=== PATIENT | male | born 2000 | race Caucasian/White ===

== ENCOUNTER 2019-01-31 09:47 | Emergency (ER) | payer OTHER, SELFPAY ==
[2019-01-31 09:49] VITALS: BP 133/75; PULSE 105; RESP 18; TEMP 36.9; O2SAT 97; BMI 30.7
--- NOTE | 2019-01-31 10:00 | ED.VISSUMM ---
- ER Visit Summary Date of Service: 01/31/19 Chief Complaint: Laceration History of Present Illness: The patient is a 19 M who works at [employer]. He reports that just prior to coming emergency department he slipped while washing his hands and hit his right elbow on the sink. He suffered a laceration. He is right-hand dominant. He reports that the sharp pain that is 1 out of 10 in severity. Is worsened by movement and relieved by rest. He denies any paresthesias distally. No other injuries. His tetanus is up-to-date. Physical Examination: Vitals: Stable. Afebrile. General: Well-nourished and well-developed. Head: Normocephalic atraumatic. Neck: Supple, no lymphadenopathy. No JVD. Nontender. Cardiovascular: Regular rate and rhythm. No murmurs. Respiratory: No respiratory distress. Clear to auscultation bilaterally. Abdominal: Soft, nontender, nondistended, normal bowel sounds. No guarding, rebound, or peritoneal signs. Back: Nontender. Extremities: Nontender, no edema. 1 cm laceration just distal to the olecranon process on the right. He is neurovascular intact distal to this. Skin: Normal color, no rash. Neurologic: Alert and oriented ?3. Cranial nerves II through XII are intact. Normal strength and sensation. Psych: Normal affect. Test Results: X-ray shows no foreign body or fracture. Emergency Department Course and Treatment: Patient had his wound anesthetized and repaired. He tolerated this well. Treatment Plan: Patient will be discharged instructions to follow-up with corporate care in 10 to 14 days for suture removal. He is instructed to keep this area clean and covered at work. Return to the emergency department for any worsening symptoms. Disposition: To home in improved and stable condition. Impression: 1. Laceration right elbow, 1 cm, repaired. Procedure note: Wound was cleansed with chlorhexidine soap. Anesthetized with 1% lidocaine without epinephrine. Copiously irrigated with normal saline. Wound was explored there is no foreign material present. It was closed with 2 simple interrupted 4-0 ethilon sutures. The patient tolerated it well. This note was generated with miDriveation software. It may contain incorrect words, spelling, and punctuation that were not noted in review of the chart prior to signing ED Disposition - Plan for ED Patient: Instructions: LACERATION, Extrem (Suture, Staple or Tape) Referrals: [facility] [GROUP OF PHYSICIANS] - 10-14 Days suture removal
--- NOTE | 2019-01-31 10:03 | RAD_ITS ---
STUDY: X-RAY - RIGHT ELBOW REASON FOR EXAM: Male, 19 years old. PT WAS AT WORK AT [employer] AND CUT HIS RT ELBOW ON METAL, BLEEDING CONTROLLED PRIOR TO ARRIVAL TECHNIQUE: 3 view(s) of the elbow. COMPARISON: None. FINDINGS: Normal visualized humerus, radius and ulna. Normal radiocapitellar and ulnotrochlear articulations. The soft tissue structures are unremarkable. No radiopaque foreign body. RAD/Elbow min 3 Views IMPRESSION: Normal x-ray examination of the elbow. Electronically Signed: Ruddy Villar MD at 10:21 EDT , Service support ,
== END 2019-01-31 11:09 | disposition home or self-care (01) ==
LOC: ED 10:33
PROVIDERS: Emergency Provider Emergency Medicine
DX: S51.011A Laceration without foreign body of right elbow, initial encounter (principal); W22.09XA Striking against other stationary object, initial encounter; Y93.E8 Activity, other personal hygiene; Y92.89 Other specified places as the place of occurrence of the external cause; Y99.0 Civilian activity done for income or pay; Z72.0 Tobacco use
CPT/HCPCS: 12001; 73080; 99283

== ENCOUNTER 2020-12-02 12:03 | Emergency (ER) | payer OTHER, BC, SELFPAY ==
[2019-02-11 10:34] VITALS: BMI 30.7
[2020-12-02 12:04] VITALS: BP 146/84; PULSE 78; RESP 16; TEMP 36.3; O2SAT 97; BMI 33.4
--- NOTE | 2020-12-02 12:09 | ED.RN ---
[facility] [employer] COUNTERPERSON NOTIFIED OF DRUG SCREEN.
--- NOTE | 2020-12-02 12:33 | EDS_ITS ---
HPI History of Present Illness Chief Complaint: Eye Problem Detail of Chief Complaint: Concern for foreign body to right eye Informant: patient Associated Symptoms Associated Symptoms - Eyes: Foreign body sensation and Photophobia History of injury: Uncertain Narrative Narrative: Patient presents to the emergency department with discomfort of the right eye that started around 7 AM this morning. Patient states that he was at work looking up some airlines when he started having discomfort. He does not recall a time where anything may have flown into his eye. He does wear eyeglasses. Patient not sure if maybe he rubbed his eye and something got put into the eye. Patient is up-to-date on tetanus. He describes some mild photophobia. He states the discomfort is intermittent. Prior similar symptoms: No PFSH PFSH Home Medications NK 01/31/19 [History Last Taken Unknown] Allergy/AdvReac Type Severity Reaction Status Date / Time No Known Allergies Allergy Verified 12/02/20 12:03 Family History (Updated 02/11/19 @ 09:59 by Brenna Rai) Other CVA (cerebral vascular accident) Myocardial infarction Social History (Updated 02/11/19 @ 10:34 by Yobani DEVLIN, PA) Smoking Status: Never smoker alcohol intake: current ROS ROS ED Constitutional Constitutional ED: Reports systems reviewed and no addt'l complaints, except as documented; Denies body ache(s), change in weight or chills Eyes Eyes: Reports other Details: Foreign body sensation to right eye ; Denies acute decrease in peripheral vision, change in vision, double vision or loss of vision ENT ENT ED: Reports none; Denies ear pain, lip swelling, loss taste/smell, neck pain, otalgia or sore throat Cardiovascular Cardiovascular: Reports none; Denies abdominal pain, chest pain with activity, leg edema, lightheadedness, palpitations, rapid heart rate or syncope Respiratory/Chest Respiratory/Chest: Reports none; Denies change in mental status, dry cough, dyspnea, hemoptysis, shortness of breath at rest or shortness of breath with exertion Gastrointestinal Gastrointestinal: Reports none; Denies abdominal pain, change in stool character, diarrhea, hematemesis, hematochezia, melena, rectal bleeding or vomi ting Genitourinary Genitourinary ED: Reports none; Denies abdominal discomfort, anuria, dysuria, genital pain or polyuria Musculoskeletal Musculoskeletal: Reports none; Denies arthralgias, back pain, difficulty walking, extremity pain, muscle weakness or myalgias Integumentary Reports none; Denies abscess or rash Neurologic Neurologic: Reports none; Denies abnormal gait, confusion, focal weakness, frequent falls, headache(s), loss of vision, numbness, paresthesias, radicular pain, vertigo or weakness Psychiatric Psychiatric: Reports systems reviewed and no addt'l complaints, except as documented and none; Denies behavioral changes, confusion, difficulty concentrating, hallucinations, suicidal ideation, tactile hallucinations or v isual hallucinations Endocrine Endocrinology: Denies none, cold intolerance, excessive sweating, fatigue or heat intolerance Hematologic/Lymphatic Hematologic/Lymphatic: Reports none; Denies anemia, easy bleeding or easy bruising Allergic/Immunologic Allergic/Immunologic ED: Denies as per HPI, none, lip swelling, mouth swelling, throat swelling, tongue swelling or hives EXAM Physical Exam Const Vital Signs: 12/02/20 12:04 Temperature 97.3 F L Temperature Source Temporal Pulse Rate 78 Respiratory Rate 16 Blood Pressure 146/84 H Blood Pressure Mean 104 Pulse Ox 97 Oxygen Delivery Method Room Air Positive well nourished and well developed General Appearance ED: well developed and NAD HEENT Reports TM's clear and moist mucous membranes normocephalic and atraumatic; Negative for trauma or tenderness Tympanic Membrane ED: Yes TM's clear Eyes PERRL and EOMs intact bilaterally Eyes Narrative: Eyelids were both everted and there were no foreign bodies noted underneath the eyelids. Patient had fluorescein dye placed to the right eye and again no uptake was noted. There is no evidence of foreign body or corneal abrasion. Patient has some minimal conjunctival erythema noted. General Eye ED: Negative for pale conjunctiva or scleral icterus Neck no lymphadenopathy, supple and no JVD General: Negative for tenderness Chest Wall inspection of chest normal and palpation of chest normal Chest: Negative for tenderness Resp normal respiratory effort and clear to auscultation bilaterally Effort and Inspection: Negative for respiratory distress or pain with movement Auscultation: Negative for rhonchi, wheezes or diminished lung sounds Cardio regular rate, regular rhythm, S1 normal heart sound, S2 normal heart sound and no murmurs Peripheral Pulses: pulses 2+ throughout GI normal to inspection, nondistended, normoactive bowel sounds, soft to palpation, non-tender, non-distended and no masses Back/Spine no CVA tenderness and no thoracic nor lumbar tenderness Extremity normal to inspection General Extremety ED: Negative for edema General Extremity: Negative for edema Neuro oriented x3, CN's II-XII intact bilaterally, no sensory deficits noted and gait normal Sensorium / Orientation: awake, alert, oriented to person, oriented to place and oriented to time Motor Exam: strength 5/5 throughout and strength abnormal Psych mental status grossly normal Skin no rashes or lesions noted and no wounds MDM MDM MDM Narrative Medical decision making narrative: At this point etiology of his discomfort is unclear. I did discuss case with ophthalmology Dr. Rodriguez who will see patient in the office at 2 PM. I did start patient on gentamicin ophthalmic drops. Discharge Plan Triage Chief Complaint: Eye Problem ED Provider: Hansa Grant Dx/Rx/DC Orders Clinical Impression: Acute pain in right eye Instructions: ED Pain, Acute, Uncertain Cause Prescriptions: No Action NK RF: 0 Primary Care Provider: Care Physician,No Primary Referrals: Carl Rodriguez MD [STAFF PHYSICIAN] - 12/02/20 2:00 pm Care Physician,No Primary [Primary Care Provider] - Disposition Disposition: Home, self care
[2020-12-02] MEDS: Tetracaine 0.5% Ophthalmic Bottle 1 DRP LEFT EYE (12:58)
[2020-12-02] MEDS: Gentamicin Sulfate 1 OPTH.BTL 2 DRP RIGHT EYE (13:03)
[2020-12-02 13:04] VITALS: BP 135/87; PULSE 74; RESP 15; O2SAT 98
== END 2020-12-02 13:10 | disposition home or self-care (01) ==
LOC: ED 13:10
PROVIDERS: Emergency Provider Emergency Medicine
DX: H57.11 Ocular pain, right eye (principal); H53.149 Visual discomfort, unspecified
CPT/HCPCS: 99283

== ENCOUNTER 2022-02-25 22:44 | Emergency (ER) | payer BC, SELFPAY ==
[2022-02-25 22:44] VITALS: BP 146/88; PULSE 112; RESP 18; TEMP 36.4; O2SAT 99; BMI 28.8
--- NOTE | 2022-02-25 22:55 | EX.ED.UPPERE ---
HPI History of Present Illness Chief Complaint: Upper Extremity Injury Informant: patient Occured/Mechanism Mechanism/Context: Yes crush Onset/Context/Timing Onset: Today Current Severity: Mild Maximum Severity: Mild Narrative Narrative: Patient presents with injury to his left index finger. He was trying to remove apart from a car and was hitting with a hammer. The hammer hit his left index finger. He has a superficial laceration over the DIP area of the extensor surface. Tetanus is up-to-date. PFSH PFSH Medical History no medical history no medical history Home Medications cephalexin 500 mg capsule 500 mg PO Q12 #14 caps 02/25/22 [Rx Last Taken Unknown] Allergy/AdvReac Type Severity Reaction Status Date / Time No Known Allergies Allergy Verified 02/25/22 22:47 Family History Other CVA (cerebral vascular accident) Myocardial infarction Social History Smoking Status: Never smoker alcohol intake: current ROS ROS ED Constitutional Constitutional ED: Denies chills or fever(s) Eyes Eyes: Denies change in vision ENT ENT ED: Denies sore throat Cardiovascular Cardiovascular: Denies chest pain Respiratory/Chest Respiratory/Chest: Denies cough or dyspnea Gastrointestinal Gastrointestinal: Denies abdominal pain, nausea or vomiting Genitourinary Genitourinary ED: Denies dysuria Musculoskeletal Musculoskeletal: Reports extremity pain; Denies back pain Integumentary Reports Abrasions; Denies rash Neurologic Neurologic: Denies headache(s) or weakness Allergic/Immunologic Allergic/Immunologic ED: Denies lip swelling or urticaria EXAM Physical Exam Const Vital Signs: 02/25/22 22:44 Temperature 97.6 F L Temperature Source Temporal Pulse Rate 112 H Respiratory Rate 18 Blood Pressure 146/88 H Blood Pressure Mean 107 Pulse Ox 99 Oxygen Delivery Method Room Air Positive well nourished and well developed General Appearance ED: well developed HEENT Reports normocephalic and head/scalp atraumatic Eyes PERRL and EOMs intact bilaterally Neck supple Chest Wall inspection of chest normal and palpation of chest normal Resp normal respiratory effort and clear to auscultation bilaterally Cardio regular rate and regular rhythm GI normal to inspection, nondistended, normoactive bowel sounds Palpation: soft Extremity Extremity Narrative: 1 cm zigzag shaped superficial laceration over the DIP joint of the left index finger on the extensor surface. Minimal bony tenderness to palpation. Good range of motion. Good cap refill and sensation distally. Neuro oriented x3 and no sensory deficits noted Sensorium / Orientation: alert Motor Exam: strength 5/5 throughout Psych mental status grossly normal MDM MDM MDM Narrative Medical decision making narrative: Patient reports his tetanus is up-to-date. Left index finger x-rays obtained. Radiography Diagnostic Testing: Radiology Impression Finger X-Ray 02/25/22 22:57 IMPRESSION: Middle phalangeal head fracture with dorsal subluxation of the distal fragment. Electronically Signed: David Mota MD at 23:20 EDT , Treatment and Re-Evaluation Narrative: Left finger x-rays reviewed by myself. He has evidence of a small fracture of the very distal aspect of the middle phalanx. There is dorsal displacement of the distal fragment. X-rays are reviewed with the patient. Digital block is performed using 4 cc of 1% lidocaine. Laceration is cleansed. 2 simple interrupted sutures of 5-0 nylon are placed. Dressing is applied. I did attempt gentle traction and manipulation of the DIP joint. He is placed in AlumaFoam splint. I spoke with Dr. Danielson, on-call for orthopedics. He reviewed the x-rays. He will follow-up with the patient in the office this week. Discharge Plan Triage Chief Complaint: Upper Extremity Injury ED Provider: Deena Dow Dx/Rx/DC Orders Clinical Impression: Laceration of left index finger, Finger fracture Instructions: ED Fracture, Finger, Open Prescriptions: New cephalexin 500 mg capsule 500 mg PO Q12 Qty: 14 0RF Primary Care Provider: Care Physician,No Primary Referrals: Zander Danielson DO [Med Staff - Active Staff] - 3-5 Days Care Physician,No Primary [Primary Care Provider] - Disposition Disposition: Home, Self Care
--- NOTE | 2022-02-25 22:57 | RAD_ITS ---
STUDY: X-RAY - LEFT HAND, ATTENTION SECOND FINGER REASON FOR EXAM: Male, 22 years old. Injury -- index finger TECHNIQUE: 3 view(s) of the finger were obtained. COMPARISON: None. FINDINGS: Normal metacarpal head. Normal metacarpophalangeal joint. Normal proximal phalanx. Middle phalangeal head transverse fracture with dorsal subluxation of the distal fragment. No articular involvement. Normal distal phalanx. Normal proximal interphalangeal joint. Normal distal interphalangeal joint. RAD/Finger(s) Min 2 Views IMPRESSION: Middle phalangeal head fracture with dorsal subluxation of the distal fragment. Electronically Signed: David Mota MD at 23:20 EDT ,
[2022-02-25] MEDS: Lidocaine 1% (20 ml mdv) 20 ML Vial INFILT (23:40)
[2022-02-25] MEDS: Cephalexin 250 MG Capsule 500 MG PO (23:55)
== END 2022-02-25 23:57 | disposition home or self-care (01) ==
PROVIDERS: Emergency Provider Emergency Medicine; Visit Provider Emergency Medicine
DX: S62.621B Displaced fracture of middle phalanx of left index finger, initial encounter for open fracture (principal); W22.8XXA Striking against or struck by other objects, initial encounter
CPT/HCPCS: 12001; 73140; 99283

== ENCOUNTER 2024-02-25 19:46 | Emergency (ER) | payer OTHER, SELFPAY ==
[2024-02-25 19:47] VITALS: BP 160/72; PULSE 111; RESP 96; TEMP 38.7; O2SAT 98; BMI 32.6
[2024-02-25 19:51] VITALS: BP 144/71; PULSE 75; RESP 18; TEMP 37.9; O2SAT 98
--- NOTE | 2024-02-25 20:16 | EX.ED.DYSGE1 ---
HPI History of Present Illness Chief Complaint: General Illness Informant: patient Onset/Context/Timing Onset: Today Context: Sudden Onset Timing: Continuous Quality: Sharp Location: Substernal area Worsened by: Movement Relieved by: Rest Narrative Narrative: Patient presents with chest pain and dizziness that began today. Patient states he woke up and noted some chest pain. Patient states it is over the substernal area. Patient states it has gradually gotten worse. Patient states he has had some dizziness today as well. Patient also admits to some pressure in both ears. Patient states that his dizziness feels like he is walking in water. Patient states that it is worse with movement. Patient states it is better with rest. Patient denies any shortness of breath. Patient denies any nausea or vomiting. Patient admits to a fever of 100.3. Patient also admits to some chills. PFSH PFSH Medical History no medical history no medical history Home Medications ?Medication ?Instructions ?Recorded ?Last Taken ?Type cephalexin 500 mg capsule 500 mg PO Q12 #14 caps 02/25/22 Unknown Rx Allergy/AdvReac Type Severity Reaction Status Date / Time No Known Allergies Allergy Verified 02/25/24 19:51 Family History Other CVA (cerebral vascular accident) Myocardial infarction Family History no significant family his Surgical History no surgical history no surgical history Social History (Updated 02/25/24 @ 21:[address] Chong Barroso, DO) Smoking Status: Never smoker Electronic Cigarette Use: with nicotine alcohol intake: current ROS ROS ED Constitutional Constitutional ED: Reports chills and fever(s) Eyes Eyes: Denies blurry vision or change in vision ENT ENT ED: Reports ear pain bilateral (Pressure) and sore throat; Denies rhinorrhea Cardiovascular Cardiovascular: Reports chest pain; Denies palpitations Respiratory/Chest Respiratory/Chest: Denies cough or dyspnea Gastrointestinal Gastrointestinal: Denies nausea or vomiting Genitourinary Genitourinary ED: Denies dysuria or hematuria Musculoskeletal Musculoskeletal: Reports back pain and neck pain Integumentary Denies abscess or rash Neurologic Neurologic: Reports headache(s); Denies weakness Allergic/Immunologic Allergic/Immunologic ED: Denies mouth swelling or urticaria EXAM Physical Exam Const Vital Signs: 02/25/24 19:47 02/25/24 19:51 02/25/24 20:04 Temperature 101.6 F H 100.3 F H Temperature Source Oral Oral Pulse Rate 111 H 75 Respiratory Rate 96 H 18 Respiratory Effort Normal Non-Labored Respiratory Pattern Normal Blood Pressure 160/72 H 144/71 H Blood Pressure Mean 101 95 Pulse Ox 98 98 Oxygen Delivery Method Room Air Room Air 02/25/24 20:51 02/25/24 21:46 02/25/24 22:00 Temperature 99.7 F H 99.6 F H Temperature Source Oral Oral Pulse Rate 74 97 95 Respiratory Rate 18 25 H 20 H Respiratory Effort Respiratory Pattern Blood Pressure 129/70 H 142/76 H 127/82 H Blood Pressure Mean 89 98 97 Pulse Ox 99 97 98 Oxygen Delivery Method Room Air Room Air Positive well nourished and well developed General Appearance ED: well developed and NAD HEENT Reports moist mucous membranes Neck supple and no JVD Chest Wall palpation of chest normal Resp normal respiratory effort and clear to auscultation bilaterally Cardio regular rate and regular rhythm GI non-tender and non-distended Palpation: soft Extremity normal to inspection General Extremety ED: Negative for edema or tenderness General Extremity: Negative for edema Neuro oriented x3, CN's II-XII intact bilaterally and no sensory deficits noted Sensorium / Orientation: alert Motor Exam: strength 5/5 throughout Psych mental status grossly normal MDM MDM MDM Narrative Medical decision making narrative: Differential diagnosis includes viral illness, pneumonia, dehydration, electrolyte abnormality, vertigo, labyrinthitis, cardiac dysrhythmia, cardiac ischemia, and migraine headache. EKG will be obtained to assess for cardiac dysrhythmia and cardiac ischemia. Chest x-ray will be obtained to assess for pneumonia and pneumothorax. CBC will be obtained to assess for leukocytosis and anemia. Basic metabolic profile will be obtained to assess for electrolyte abnormality and renal function. High-sensitivity troponin will be obtained to assess for cardiac ischemia. COVID-19, influenza, and RSV PCR will be obtained to assess for viral illness. Lab Data Attestation: I reviewed the patient's lab results. Lab results narrative: CBC was reviewed and was within normal limits. Basic metabolic profile was reviewed and was within normal limits. High-sensitivity troponin was reviewed and was normal at 3. COVID-19 PCR was reviewed and was negative. Influenza PCR was reviewed and was negative for influenza A and influenza B. RSV PCR was reviewed and was negative. Labs: Laboratory Results - last 24 hr 02/25/24 21:25 WBC 6.2 RBC 5.10 Hgb 15.3 Hct 44.7 MCV 87.6 MCH 30.0 MCHC 34.2 RDW Std Deviation 39.1 RDW Coeff of Elie 12.1 Plt Count 235 MPV 9.8 Immature Gran % (Auto) 0.200 Neut % (Auto) 62.7 Lymph % (Auto) 22.7 [place] % (Auto) 14.0 H Eos % (Auto) 0.2 Baso % (Auto) 0.2 Absolute Neuts (auto) 3.9 Absolute Lymphs (auto) 1.41 Nucleated RBC % 0 Sodium 137 Potassium 3.5 Chloride 104 Carbon Dioxide 26.0 Anion Gap 7 BUN 12 Creatinine 0.92 Estim Creat Clear Calc 137.77 Est GFR (MDRD) Af Amer 128 Est GFR (MDRD) Non-Af 106 BUN/Creatinine Ratio 13.0 Glucose 105 Calcium 8.8 Troponin I High Sens 3 Radiography Diagnostic Testing: Clinical Impression(s) from Imaging Studies Chest X-Ray 02/25/24 21:38 IMPRESSION: No radiographic evidence of acute cardiopulmonary disease. Electronically Signed: Edward Farr MD at 22:06 EDT , PA and lateral chest x-ray was obtained. There are 2 views. On my independent interpretation, lung nixon are clear. There is normal cardiac silhouette. Bony thorax is normal. There is no acute process noted. Radiologist also interpreted the x-ray and agrees. EKG Initial EKG: Attestation: I personally reviewed and interpreted this EKG as follows: Interpretation: Sinus Rhythm (97) and No Acute Injury Pattern Comments: EKG was obtained. On my independent interpretation, it showed a normal sinus rhythm with a rate of 97. [place] interval, QRS interval, and QTc intervals were all normal. [place] was normal. There are no acute ST or T wave changes. Prior EKG tracings: not available for review Prior: No Prior Treatment and Re-Evaluation :: Nicotine cessation was discussed. Patient was given IV fluids and Tylenol here. Patient was advised of his findings. Patient was instructed to drink plenty of fluids. Patient was instructed take Tylenol or ibuprofen as needed for any pain or fevers. Patient was instructed to follow-up with his primary care physician in 5 to 7 days for further evaluation. Patient understood and was agreeable with plan. All questions were answered. Discharge Plan Triage Chief Complaint: General Illness ED Provider: Chong Barroso Dx/Rx/DC Orders Clinical Impression: Viral illness, Nicotine vapor product user Prescriptions: No Action cephalexin 500 mg capsule 500 mg PO Q12 Qty: 14 0RF Stand Alone Forms: ED Work / School Excuse Primary Care Provider: Care Physician,No Primary Referrals: Chong Larsen MD [Med Staff - [facility]] - 5-7 Days Care Physician,No Primary [Primary Care Provider] - Print Language: Burmese Disposition Disposition: Home, Self Care
[2024-02-25 20:51] VITALS: BP 129/70; PULSE 74; RESP 18; TEMP 37.6; O2SAT 99
[2024-02-25] MEDS: Acetaminophen 500 MG Tablet 1000 MG PO (21:23)
[2024-02-25] MEDS: 0.9% Normal Saline (1000mL) 1,000 ML 1000 ML IV (21:23)
[2024-02-25 21:37] LABS: Absolute Lymphocyte Count 1.41 X10^3/uL (0.83-4.51); Absolute Neutrophil Count 3.9 X10^3/uL (2.0-7.7); Basophil# 0.01 X10^3/uL; Basophil% 0.2 % (0-1); Eosinophil# 0.01 X10^3/uL; Eosinophils% 0.2 % (0-5); Hematocrit 44.7 % (40-54); Hemoglobin 15.3 g/dL (13.0-16.5); Lymphocyte # 1.41 X10^3/ul (0.83-4.51); Lymphocyte % 22.7 % (19-41); Mean Corp Hgb Conc 34.2 g/dL (32-36); Mean Corpuscular Volume 87.6 fL (80-94); Mean Platelet Vol. 9.8 fl (6.2-12.0); Monocyte# 0.87 X10^3/uL; NRBC Flagged by Analyzer 0 % (0-5); Neutrophil # 3.91 X10^3/uL (2.7-7.7); Neutrophil % 62.7 % (47-70); Platelet Count 235 K/mm3 (150-450); RBC Distribution Width CV 12.1 % (11.6-14.6); RBC Distribution Width SD 39.1 fl (35.1-43.9); White Blood Count 6.2 K/mm3 (4.4-11.0)
--- NOTE | 2024-02-25 21:38 | RAD_ITS ---
EXAM: XR CHEST, 2 VIEWS CLINICAL INDICATION: Chest pain TECHNIQUE: Frontal and lateral views of the chest. COMPARISON: No relevant prior studies available. FINDINGS: LUNGS AND PLEURAL SPACES: Unremarkable. No consolidation or edema. No pneumothorax. No effusion. HEART: Unremarkable. Cardiac silhouette not enlarged. Normal pulmonary vasculature. MEDIASTINUM: Central airways and mediastinal contour are unremarkable. No mediastinal widening. Trachea is midline. BONES/JOINTS: Unremarkable. No acute fracture. SOFT TISSUES: Unremarkable. RAD/Chest PA and Lateral IMPRESSION: No radiographic evidence of acute cardiopulmonary disease. Electronically Signed: Edward Farr MD at 22:06 EDT ,
[2024-02-25 21:46] VITALS: BP 142/76; PULSE 97; RESP 25; O2SAT 97
[2024-02-25 21:56] LABS: Anion Gap 7 (5-15); BUN 12 mg/dL (7-18); Calcium,Total 8.8 mg/dL (8.5-10.1); Chloride 104 mmol/L (98-107); Creatinine, Serum 0.92 mg/dL (0.70-1.30); EST Glomerular Filtration Rate 106 mL/min (>60); Est Glom Filt Rate - Afr Amer 128 mL/min (>60); Estimated Creatinine Clearance 137.77 ml/min; Glucose 105 mg/dL (74-106); Potassium 3.5 mmol/L (3.5-5.1); Sodium Level 137 mmol/L (136-145); Troponin-I HS 3 pg/mL (3.0-78.0)
[2024-02-25 22:00] VITALS: BP 127/82; PULSE 95; RESP 20; TEMP 37.6; O2SAT 98
[2024-02-25 22:51] VITALS: BP 106/59; PULSE 95; RESP 22; TEMP 37.4; O2SAT 99
== END 2024-02-25 22:59 | disposition home or self-care (01) ==
PROVIDERS: Emergency Provider Emergency Medicine; Visit Provider Emergency Medicine
DX: B34.9 Viral infection, unspecified (principal); F17.290 Nicotine dependence, other tobacco product, uncomplicated
CPT/HCPCS: 71046; 80048; 84484; 85025; 87631; 93005; 96360; 99285; J7030; A4216

== ENCOUNTER 2025-06-04 11:23 | Emergency (ER) | payer OTHER, SELFPAY ==
[2025-06-04 11:23] VITALS: BP 146/87; PULSE 94; RESP 14; TEMP 36.8; O2SAT 98; BMI 37.8
--- NOTE | 2025-06-04 12:42 | EX.ED.UPPERE ---
HPI History of Present Illness Chief Complaint: Laceration Narrative Narrative: 25-year-old male who denies significant past medical history, [id number], presents with laceration to his left hand that he sustained approximately 3 hours ago. He was using a knife, making breakfast, when he accidentally stabbed his left hand. His wound is mainly at the base of his second digit and more towards the webspace in between the 1st and 2nd digit. He states his tetanus immunization is greater than 5 years but less than 10. He denies other injuries. PFSH PFS Medical History no medical history Home Medications ?Medication ?Instructions ?Recorded ?Last Taken ?Type NK 06/04/25 Unknown History Allergy/AdvReac Type Severity Reaction Status Date / Time No Known Allergies Allergy Verified 06/04/25 11:50 Family History Other CVA (cerebral vascular accident) Myocardial infarction Social History current occupational status: employed Smoking Status: Former smoker Electronic Cigarette Use: with nicotine alcohol intake: current ROS ROS ED ROS Narrative Review of systems positive for laceration/stab wound to the left hand. [id number]. Tetanus immunization current. Denies other injury. EXAM Physical Exam Narrative Exam Narrative: GCS 15. ABCs intact. Focused examination of the left hand does show a 1 cm laceration that is slightly irregular at the base of the second digit more towards the webspace of the hand between the 1st and 2nd digits. No active bleeding. Full range of motion of the left hand/fingers. No bony tenderness. Const Vital Signs: 06/04/25 11:23 Temperature 98.3 F Temperature Source Temporal Pulse Rate 94 Respiratory Rate 14 Blood Pressure 146/87 H Blood Pressure Mean 106 Pulse Ox 98 Oxygen Delivery Method Room Air MDM MDM MDM Narrative Medical decision making narrative: I do not feel that differential diagnosis is applicable. Additionally, I do not feel that he needs an x-ray of the left hand. There is no bony tenderness and I have low suspicion for foreign body or fracture. See procedure note for details. A total of 3 simple interrupted sutures using 5.0 nylon/Ethilon were inserted without difficulty. He is to have his sutures removed in 7 to 10 days by his primary care provider or urgent care. I feel he can take [id number] medications as needed for pain. Return instructions were reviewed. Disposition is discharged home in stable condition. History & Record Review Discussion w/independent historian: Patient Procedures Lacerations Left hand: Length: 0.39 in Shape: Linear Prep: Sterile Conditions Laceration repair: Lidocaine and Local Number of Sutures/[place]: 3 Suture Information: Ethilon and 5-0 Comment: Patient informed of risk of infection and scarring and acknowledged an understanding. Patient tolerated procedure well. Discharge Plan Triage Chief Complaint: Laceration ED Provider: Terry Mayo Dx/Rx/DC Orders Clinical Impression: Laceration of hand, left, Stab wound Instructions: ED Hand Laceration- All Closures Prescriptions: No Action NK Primary Care Provider: Care Physician,No Primary Referrals: Care Physician,No Primary [Primary Care Provider, Medical] Activity Restrictions/Additional Instructions: Tylenol or ibuprofen as needed for pain. Have sutures removed in 7 to 10 days by primary care provider. Return to the emergency department with increased redness of wound, drainage of pus, fever, red streak up your hand/arm, new or worsening symptoms. Print Language: Slovak Disposition Disposition: Home, Self Care
--- OUTSIDE RECORDS SUMMARY | 2025-06-04 13:09 | XMS RPT_ITS | CCD ---
Author Organization [facility] Inform ion Partnership [facility] Care Team Providers Care Agricultural [employer]rop [employer] Manager Name Role Phone NAOMI THAKUR Unavailable Unavailable PEBBLES LOPEZ Unavailable Unavailable Chong Barroso Attending Unavailable Care Physician, No Primary Primary Care Unava ilable Medications Current Medications Medication Drug Class(es) Dates Sig (Normalized) Sig (Original) cephalexin 500 mg oral capsule (1 source) Cephalosporin Antibacterial Start: 02-25-2022 take 500 mg by mouth every twelve hours Cephalexin Active 500 MG PO EVERY 12 HOURS February 25, 2022 12:00am Problems Problem Classification Problem Date Documented Da te Episodic/Chronic Fracture of upper limb (1 source) Fracture of phalanx of finger; Translations: [Fracture of unspecified phalanx of unspecified finger, initial encounter for closed fracture] Episodic Nonspecific chest pain (1 source) Chest pain, unspecified; Translations: [Chest pain, unspecified] Onset: 03-05-2024 Episodic Open wounds of extremities (1 source) Laceration of left index finger; Translations: [Laceration without foreign body of left index finger without damage to nail, initial encounter] Episodic Open wounds of extremities (1 source) Laceration of right elbow; Translations: [Laceration without foreign body of right elbow, initial encounter] Episodic Other eye disorders (1 source) Pain in eye; Translations: [Ocular pain, right eye] Episodic Results Test Name Value Interpretation Reference Range Facility Basic Metabolic Profile (BMP )on 02-25-2024 BUN/CRE 13.0 RATIO Normal 10- [facility] Comment on above: Order Comment: 'TROP ' Serial specimen #1, #2 or #3: 1 Performed By: #### L 501.4020, L500.2500, L100.0100 #### [facility] [address] [place], [address] CA,Total 8.8 mg/dL Normal 8.5-10.1 [facility] Comment on above: Order Comment: 'TROP ' Serial specimen #1, #2 or #3: 1 Performed By: #### L 501.4020, L500.2500, L100.0100 #### [facility] [address] [place], [address] Chloride [Moles/Vol] 104 mmol/L Normal 98-107 [facility] Comment on above: Order Comment: 'TROP ' Serial specimen #1, #2 or #3: 1 Performed By: #### L 501.4020, L500.2500, L100.0100 #### [facility] [address] [place], [address] CO2 [Moles/Vol] 26.0 mmol/L Normal 21.0-32.0 [facility] Comment on above: Order Comment: 'TROP ' Serial specimen #1, #2 or #3: 1 Performed By: #### L 501.4020, L500.2500, L100.0100 #### [facility] [address] [place], [address] Creatinine [Mass/Vol] 0.92 mg/dL Normal 0.70-1.30 [facility] Comment on above: Order Comment: 'TROP ' Serial specimen #1, #2 or #3: 1 Result Comment: The validity of the calculated GFR GFRAA in patients over 70 years has not been determined. Clinical correlation is essential. Performed By: #### L 501.4020, L500.2500, L100.0100 #### [facility] [address] [place], [address] ECRCL 137.77 ml/min Normal [facility] Comment on above: Order Comment: 'TROP ' Serial specimen #1, #2 or #3: 1 Performed By: #### L 501.4020, L500.2500, L100.0100 #### [facility] [address] [place], [address] EST GFR - AA 128 mL/min Normal >60 [facility] Comment on above: Order Comment: 'TROP ' Serial specimen #1, #2 or #3: 1 Result Comment: Afri can Samoan GFR Calc Performed By: #### L 501.4020, L500.2500, L100.0100 #### [facility] [address] [place], [address] GAP 7 Normal 5-15 [facility] Comment on above: Order Comment: 'TROP ' Serial specimen #1, #2 or #3: 1 Performed By: #### L 501.4020, L500.2500, L100.0100 #### [facility] [address] [place], [address] GFR/1.73 sq M.predicted among non-blacks MDRD (S/P/Bld) [Vol rate/Area] 106 mL/min/{1.73_m2} Normal >60 [facility] Comment on above: Order Comment: 'TROP ' Serial specimen #1, #2 or #3: 1 Result Comment: Non- GFR Calc Performed By: #### L 501.4020, L500.2500, L100.0100 #### [facility] [address] [place], [address] Glucose [Mass/Vol] 105 mg/dL Normal 74-106 [facility] Comment on above: Order Comment: 'TROP ' Serial specimen #1, #2 or #3: 1 Result Comment: Fast ing Glucose result from 100 to 125 mg/dL suggests IMPAIRED HOMEOSTASIS per A.D.A. criteria. Performed By: #### L 501.4020, L500.2500, L100.0100 #### [facility] [address] [place], [address] Potassium [Moles/Vol] 3.5 mmol/L Normal 3.5-5.1 [facility] Comment on above: Order Comment: 'TROP ' Serial specimen #1, #2 or #3: 1 Performed By: #### L 501.4020, L500.2500, L100.0100 #### [facility] [address] [place], [address] Sodium [Moles/Vol] 137 mmol/L Normal 136-145 [facility] Comment on above: Order Comment: 'TROP ' Serial specimen #1, #2 or #3: 1 Performed By: #### L 501.4020, L500.2500, L100.0100 #### [facility] [address] [place], [address] Urea nitrogen [Mass/Vol] 12 mg/dL Normal 7-18 [facility] Comment on above: Order Comment: 'TROP ' Serial specimen #1, #2 or #3: 1 Performed By: #### L 501.4020, L500.2500, L100.0100 #### [facility] [address] [place], [address] CBC W/Diff, Automatedon 02-11 Absolute Lymph 1.41 X10 3/uL Normal 0.83-4.51 [facility] Comment on above: Performed By: #### L 501.4020, L500.2500, L100.0100 #### [facility] [address] [place], [address] Absolute Neut 3.9 X10 3/uL Normal 2.0-7.7 [facility] Comment on above: Performed By: #### L 501.4020, L500.2500, L100.0100 #### [facility] [address] [place], [address] Basophils/100 WBC (Bld) 0.2 % Normal 0-1 [facility] Comment on above: Performed By: #### L 501.4020, L500.2500, L100.0100 #### [facility] [address] [place], [address] Eosinophils/100 WBC (Bld) 0.2 % Normal 0-5 [facility] Comment on above: Performed By: #### L 501.4020, L500.2500, L100.0100 #### [facility] [address] [place], [address] Erythrocyte distribution width (RBC) [Ratio] 12.1 % Normal 11.6-14.6 [facility] Comment on above: Performed By: #### L 501.4020, L500.2500, L100.0100 #### [facility] [address] [place], [address] Hematocrit (Bld) [Volume fraction] 44.7 % Normal 40-54 [facility] Comment on above: Performed By: #### L 501.4020, L500.2500, L100.0100 #### [facility] [address] [place], [address] Hemoglobin (Bld) [Mass/Vol] 15.3 g/dL Normal 13.0-16.5 [facility] Comment on above: Performed By: #### L 501.4020, L500.2500, L100.0100 #### [facility] [address] [place], [address] IG% 0.200 Normal 0.0-0.9 [facility] Comment on above: Result Comment: IG% - Immature Granulocytes (promyelocytes, myelocytes and metamyelocytes) > 1% indicates that a LEFT SHIFT is Present. Performed By: #### L 501.4020, L500.2500, L100.0100 #### [facility] [address] [place], [address] Lymphocytes/100 WBC (Bld) 22.7 % Normal 19-41 [facility] Comment on above: Performed By: #### L 501.4020, L500.2500, L100.0100 #### [facility] [address] [place], [address] MCH (RBC) [Entitic mass] 30.0 pg Normal 27.0-32.0 [facility] Comment on above: Performed By: #### L 501.4020, L500.2500, L100.0100 #### [facility] [address] [place], [address] MCHC (RBC) [Mass/Vol] 34.2 g/dL Normal 32-36 [facility] Comment on above: Performed By: #### L 501.4020, L500.2500, L100.0100 #### [facility] [address] [place], [address] MCV (RBC) [Entitic vol] 87.6 fL Normal 80-94 [facility] Comment on above: Performed By: #### L 501.4020, L500.2500, L100.0100 #### [facility] [address] [place], [address] Monocytes/100 WBC (Bld) 14.0 % High 0-10 [facility] Comment on above: Performed By: #### L 501.4020, L500.2500, L100.0100 #### [facility] [address] [place], [address] Neutrophils/100 WBC (Bld) 62.7 % Normal 47-70 [facility] Comment on above: Performed By: #### L 501.4020, L500.2500, L100.0100 #### [facility] [address] [place], [address] Nucleated RBC (Bld) [#/Vol] 0 10*3/uL Normal 0-5 [facility] Comment on above: Performed By: #### L 501.4020, L500.2500, L100.0100 #### [facility] [address] [place], [address] Platelet mean volume (Bld) [Entitic vol] 9.8 fL Normal 6.2-12.0 [facility] Comment on above: Performed By: #### L 501.4020, L500.2500, L100.0100 #### [facility] [address] [place], [address] Platelets (Bld) [#/Vol] 235 10*3/uL Normal 150-450 [facility] Comment on above: Performed By: #### L 501.4020, L500.2500, L100.0100 #### [facility] [address] [place], [address] RBC (Bld) [#/Vol] 5.10 10*6/uL Normal 4.6-6.2 [facility] Comment on above: Performed By: #### L 501.4020, L500.2500, L100.0100 #### [facility] [address] [place], [address] RDW SD 39.1 fl Normal 35.1-43.9 [facility] Comment on above: Performed By: #### L 501.4020, L500.2500, L100.0100 #### [facility] [address] [place], [address] WBC (Bld) [#/Vol] 6.2 10*3/uL Normal 4.4-11.0 [facility] Comment on above: Performed By: #### L 501.4020, L500.2500, L100.0100 #### [facility] [address] [place], [address] Chest PA and Lateralon 02-24 Chest PA and Lateral [facility] Imaging Services [address] [place] [address] Chest PA and Lateral MR#: [id number] Acct: [id number] Name: SANDI CARRANZA Rep #: [id number] : 2000 M 24 From: Edward linder MD PCP: Care Physician,No Primary Status: REG ER Study: Chest PA and Lateral Date of Exam: 02/25/24 Exam# [id number] Ordering Dr: Chong Barroso DO [id number] EXAM: XR CHEST, 2 VIEWS CLINICAL INDICATION: Chest pain TECHNIQUE: Frontal and lateral views of the chest. COMPARISON: No relevant prior studies available. FINDINGS: LUNGS AND PLEURAL SPACES: Unremarkable. No consolidation or edema. No pneumothorax. No effusion. HEART: Unremarkable. Cardiac silhouette not enlarged. Normal pulmonary vasculature. MEDIASTINUM: Central airways and mediastinal contour are unremarkable. No mediastinal widening. Trachea is midline. BONES/JOINTS: Unremarkable. No acute fracture. SOFT TISSUES: Unremarkable. RAD/Chest PA and Lateral IMPRESSION: No radiographic evidence of acute cardiopulmonary disease. Electronically Signed: Edward Farr MD at 22:06 EDT , CC: Dr. Chong Barroso DO; No Primary Care Physician Rail Bender: Signed Normal [facility] Emergency Department Summary on 02-25-2024 Emergency Department Summary [facility] Medical Records Department [address] [place] [address] Emergency Department Summary 02/25/24 MR#: [id number] Acct: [id number] Name: SANDI CARRANZA Rep #: [id number] : 2000 24 From: Chong Barroso DO PCP: Care Physician,No Primary Status:[facility] ER Location: ED HPI History of Present Illness Chief Complaint: General Illness Informant: patient Onset/Context/Timing Onset: Today Context: Sudden Onset Timing: Continuous Quality: Sharp Location: Substernal area Worsened by: Movement Relieved by: Rest Narrative Narrative: Patient presents with chest pain and dizziness that began today. Patient states he woke up and noted some chest pain. Patient states it is over the substernal area. Patient states it has gradually gotten worse. Patient states he has had some dizziness today as well. Patient also admits to some pressure in both ears. Patient states that his dizziness feels like he is walking in water. Patient states that it is worse with movement. Patient states it is better with rest. Patient denies any shortness of breath. Patient denies any nausea or vomiting. Patient admits to a fever of 100.3. Patient also admits to some chills. PFSH PFSH Medical History no medical history no medical history Home Medications ???Medication ???Instructions ???Recorded ???Last Taken ???Type cephalexin 500 mg capsule 500 mg PO Q12 #14 caps 02/25/22 Unknown Rx Allergy/AdvReac Type Severity Reaction Status Date / Time No Known Allergies Allergy Verified 02/25/24 19:51 Family History Other CVA (cerebral vascular accident) Myocardial infarction Family History no significant family his Surgical History no surgical history no surgical history Social History (Updated 02/25/24 @ 21:[address] Chong Barroso, DO) Smoking Status: Never smoker Electronic Cigarette Use: with nicotine alcohol intake: current ROS ROS ED Constitutional Constitutional ED: Reports chills and fever(s) Eyes Eyes: Denies blurry vision or change in vision ENT ENT ED: Reports ear pain bilateral (Pressure) and sore throat; Denies rhinorrhea Cardiovascular Cardiovascular: Reports chest pain; Denies palpitations Respiratory/Chest Respiratory/Chest: Denies cough or dyspnea Gastrointestinal Gastrointestinal: Denies nausea or vomiting Genitourinary Genitourinary ED: Denies dysuria or hematuria Musculoskeletal Musculoskeletal: Reports back pain and neck pain Integumentary Denies abscess or rash Neurologic Neurologic: Reports headache(s); Denies weakness Allergic/Immunologic Allergic/Immunologic ED: Denies mouth swelling or urticaria EXAM Physical Exam Const Vital Signs: 02/25/24 19:47 02/25/24 19:51 02/25/24 20:04 Temperature 101.6 F H 100.3 F H Temperature Source Oral Oral Pulse Rate 111 H 75 Respiratory Rate 96 H 18 Respiratory Effort Normal Non-Labored Respiratory Pattern Normal Blood Pressure 160/72 H 144/71 H Blood Pressure Mean 101 95 Pulse Ox 98 98 Oxygen Delivery Method Room Air Room Air 02/25/24 20:51 02/25/24 21:46 08/14/24 22:00 Temperature 99.7 F H 99.6 F H Temperature Source Oral Oral Pulse Rate 74 97 95 Respiratory Rate 18 25 H 20 H Respiratory Effort Respiratory Pattern Blood Pressure 129/70 H 142/76 H 127/82 H Blood Pressure Mean 89 98 97 Pulse Ox 99 97 98 Oxygen Delivery Method Room Air Room Air Positive well nourished and well developed General Appearance ED: well developed and NAD HEENT Reports moist mucous membranes Neck supple and no JVD Chest Wall palpation of chest normal Resp normal respiratory effort and clear to auscultation bilaterally Cardio regular rate and regular rhythm GI non-tender and non-distended Palpation: soft Extremity normal to inspection General Extremety ED: Negative for edema or tenderness General Extremity: Negative for edema Neuro oriented x3, CN's II-XII intact bilaterally and no sensory deficits noted Sensorium / Orientation: alert Motor Exam: strength 5/5 throughout Psych mental status grossly normal MDM MDM MDM Narrative Medical decision making narrative: Differential diagnosis includes viral illness, pneumonia, dehydration, electrolyte abnormality, vertigo, labyrinthitis, cardiac dysrhythmia, cardiac ischemia, and migraine headache. EKG will be obtained to assess for cardiac dysrhythmia and cardiac ischemia. Chest x-ray will be obtained to assess for pneumonia and pneumothorax. CBC will be obtained to assess for leukocytosis and anemia. Basic metabolic profile will be obtained to assess for electrolyte abnormality and renal function. High-sensitivity troponin will be obtained to assess for (more content not included)... Normal [facility] L501.4020on 02-25-2024 TROPONIN-I HS 3 pg/mL Normal 3.0-78.0 [facility] Comment on above: Order Comment: 'TROP ' Serial specimen #1, #2 or #3: 1 Result Comment: Michael garcia Note: New Test Units and Gender Specific Reference Ranges. For more information see Policy Stat Procedure [place] High Sensitivity Troponin (TNIH) and attachments. Performed By: #### L 501.4020, L500.2500, L100.0100 #### [facility] [address] [place], [address] M100.678on 02-25-2024 M100.678 SARS-CoV-2 (COVID 19) Negative INFLUENZA A Negative INFLUENZA B Negative RSV PCR Negative Normal [facility] Comment on above: Performed By: #### M 100.678 #### [facility] [place], [address] Rosanne 07-11-2021 CNPN Telephone ([facility]) SANDI CARRANZA ([id number]) 2000 Date Time Provider Department 07/11/21 SHARIF PEREA [facility] During your visit today, we recorded the following information about you: Sharif Perea MD 07/11/2021 3:56 PM Signed Forehead culture grew herpes virus. This is the same virus that causes cold sores. The medication prescribed will be helpful to treat this. The spot may flareup from time to time in the future. Follow-up with primary care if he would like to discuss further treatment options. Sharlene Cruz 07/11/2021 7:53 PM Signed Patient given results and verbalized understanding of instructions given. Sharlene Cruz Allergies As of Date: 07/11/2021 (No Known Allergies) Date Reviewed: 07/09/2021 Reviewed by: Edison Moon APRN.COMPUTER CONSULTANT - Fully Assessed Reason for Visit: Results [95] Cmt: Herpes+ Prescriptions as of 07/11/2021 - valACYclovir (VALTREX) 1 gram Take 1 tablet by mouth three times daily for 7 days. Problem List As Of Date: 07/11/2021 (None) Encounter Status:Closed by SHARLENE CRUZ on 07/11/21 [facility] CNOVjan 07-09-2021 CNOV Office Visit ([facility]) SANDI CARRANZA ([id number]) 2000 M Date Time Provider Department 07/09/21 7:[address] [facility] During your visit today, we recorded the following information about you: Temperature Pulse Respiration Blood pressure 97 degrees 74/minute 16/minute 124/80 Weight 88.9 kg Edison Moon APRN.CNP 07/09/2021 7:37 PM Signed Subjective HPI HPI Sandi Carranza is a 21 year old male who presents today for CC of painful rash on forehead. This started 2 days ago. Has tried nothing for relief. Symptoms are worsened by nothing. Risk factors had chicken pox as child. Denies fever, drainage. Denies right eye pain, vision changes. .Patient presents with: Derm Problem: x 2-3 days No past medical history on file. No past surgical history on file. ALLERGIES Patient has no known allergies. MEDICATIONS valACYclovir (VALTREX) 1 gram Take 1 tablet by mouth three times daily for 7 days. No family history on file. Social History Tobacco Use - Smoking status: Current Every Day Smoker - Smokeless tobacco: Never Used Substance Use Topics - Alcohol use: No - Drug use: No ROS Objective Blood pressure 124/80, pulse 74, temperature 36.1 ?C (97 ?F), resp. rate 16, weight 88.9 kg (196 lb), SpO2 99 %. Physical Exam Constitutional: General: He is not in acute distress. Appearance: He is not toxic-appearing or diaphoretic. HENT: Head: Normocephalic and atraumatic. Pulmonary: Effort: Pulmonary effort is normal. No accessory muscle usage or respiratory distress. Neurological: Mental Status: He is alert and oriented to person, place, and time. ASSESSMENT/PLAN: 1. Rash - ICD9: 782.1, ICD10: R21 Suspect shingles -use medication as prescribed -follow up if symptoms persist, worsen, change - HSV 1,2/VZV AMP MOLECULAR DETECT - VALACYCLOVIR 1 GRAM TABLET Agrees to plan Edison Moon APRN.CNP Referring Provider: SELF [200] Allergies As of Date: 07/09/2021 (No Known Allergies) Date Reviewed: 07/09/2021 Reviewed by: Edison Moon APRN.COMPUTER CONSULTANT - Fully Assessed Reason for Visit: Derm Problem [33] Cmt: x 2-3 days Primary Visit Diagnosis:Rash [R21] Order(s):HSV 1,2/VZV AMP MOLECULAR DETECT [SQHSVVZV] Order #: [id number] FUTURE valACYclovir (VALTREX) 1 gramTake 1 tablet by mouth three times daily for 7 days.Disp: 21 tabletRfl: 0 Prescriptions as of 07/09/2021 - valACYclovir (VALTREX) 1 gram Take 1 tablet by mouth three times daily for 7 days. Problem List As Of Date: 07/09/2021 (None) Prescriptions ordered this encounter Disp Refills Start End VALACYCLOVIR 1 GRAM TABLET 21 t* 0 07/09/2021 07/16/2021 Route: ORAL Sig: Take 1 tablet by mouth three times daily for 7 days. Encounter Status:Closed by EDISON MOON on 07/09/[address] 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 Critically abnormal [facility] Comment on above: Performed By: #### H SVVZV #### [facility] [employer] [place] [phone] HSV Type 2, HDA Negative for Herpes Simplex virus Type 2 by [facility]. Normal [facility] Comment on above: Performed By: #### H SVVZV #### [facility] [address] [place] [phone] Specimen source Nom (Unsp spec) Lesion Normal [facility] Comment on above: Performed By: #### H SVVZV #### [facility] [address] [place] [phone] V Zoster Virus, HDA Negative for Varicella Zoster virus by [facility]. Normal [facility] Comment on above: Performed By: #### H SVVZV #### [facility] [address] [place] [phone] Vital Signs Date Time Vital Sign Value Performing Clinician Tony mai 02-25-2022 22:44-0400 Body height 172.[address] [facility] Work Phone: 02-25-2022 22:44-0400 Body mass index (BMI) [Ratio] 28.8 kg/m2 [facility] Work Phone: 02-25-2022 22:44-0400 Body temperature 97.6 [degF] [facility] Work Phone: 02-25-2022 22:44-0400 Body weight 86.[address] [facility] Work Phone: 02-25-2022 22:44-0400 Diastolic blood pressure 88 mm[Hg] [facility] Work Phone: 02-25-2022 22:44-0400 Heart rate 112 /min [facility] Work Phone: 02-25-2022 22:44-0400 Respiratory rate 18 /min [facility] Work Phone: 02-25-2022 22:44-0400 SaO2% (BldA) [Mass fraction] 99 % [facility] Work Phone: 02-25-2022 22:44-0400 Systolic blood pressure 146 mm[Hg] [facility] Work Phone: Encounters Encounter Date Encounter Type Care Provider Facility Start: 02-25-2024 End: 02-25-2024 Emergency department patient visit Chong Barroso Facility:[facility] Start: 02-25-2022 End: 02-25-2022 Emergency department patient visit [facility] Start: 05-29-2018 End: 05-30-2018 Emergency department patient visit NAOMI THAKUR Facility:B Procedures Date Procedure Procedure Detail Performing Clinician Start: 02-25-2022 Diagnostic radiograp hy of finger Plan of Treatment Date Care Activity Detail Author Patient Education ED Fracture, Finger, Op en [facility] Work Phone: Patient referral [facility] [facility] Work Phone: Payers Date Payer Category Payer Private Health Insurance [id number] 2018 Self-pay 2000 Unknown [id number] Unknown SELF PAY INSURANCE [id number] Unknown [id number] Social History Date Type Detail Facility Start: 02-25-2022 Tobacco smoking stat [facility] Unknown if ever smoked [facility] Work Phone: Start: 12-02-2020 Non-smoker [facility] Work Phone: Start: 2000 Sex Assigned At Male [facility] Work Phone: Progress note 07-09-2021 Note Date & Type Note Facility 07-09-2021 Note HNO ID: [id number] Author: Edison Moon APRN.COMPUTER CONSULTANT Service: ? Author Type: Nurse Practitioner Type: Progress Notes Filed: 07/09/2021 7:37 PM Note Text: Subjective HPI HPI Sandi Carranza is a 21 year old male who presents today for CC of painful rash on forehead. This started 2 days ago. Has tried nothing for relief. Symptoms are worsened by nothing. Risk factors had chicken pox as child. Denies fever, drainage. Denies right eye pain, vision changes. .Patient presents with: Derm Problem: x 2-3 days No past medical history on file. No past surgical history on file. ALLERGIES Patient has no known allergies. MEDICATIONS valACYclovir (VALTREX) 1 gram Take 1 tablet by mouth three times daily for 7 days. No family history on file. Social History Tobacco Use - Smoking status: Current Every Day Smoker - Smokeless tobacco: Never Used Substance Use Topics - Alcohol use: No - Drug use: No ROS Objective Blood pressure 124/80, pulse 74, temperature 36.1 ?C (97 ?F), resp. rate 16, weight 88.9 kg (196 lb), SpO2 99 %. Physical Exam Constitutional: General: He is not in acute distress. Appearance: He is not toxic-appearing or diaphoretic. HENT: Head: Normocephalic and atraumatic. Pulmonary: Effort: Pulmonary effort is normal. No accessory muscle usage or respiratory distress. Neurological: Mental Status: He is alert and oriented to person, place, and time. ASSESSMENT/PLAN: 1. Rash - ICD9: 782.1, ICD10: R21 Suspect shingles -use medication as prescribed -follow up if symptoms persist, worsen, change - HSV 1,2/VZV AMP MOLECULAR DETECT - VALACYCLOVIR 1 GRAM TABLET Agrees to plan Edison Moon APRN.COMPUTER CONSULTANT [facility] Evaluation note Note Date & Type Note Facility Evaluation note No assessment information availa [facility] Work Phone: Summary Purpose Family History No Family History Records Found Relationship Condition Age at Onset Recorded Date/T shelley Not Specified Myocardial infarction Unknown Cerebrovascular accident (CVA) Unknown Advance Directives No Advanced Directives Records Found Advance Directive Response Recorded Date/ Time Living Will No February 25 10:47pm Power of Sales Representative [employer] No February 25 022 10:47pm Chief Complaint and Reason for Visit Chief Complaint SMASHED FINGER Additional Source Comments (unrecognized sect ion and content) No Status Records FoundNo Status Records FoundNo Status Records Found INFORMATION SOURCE (unrecogn ized section and content) DATE CREATED AUTHOR 06/22/2018 [facility] ([place]) DATE CREATED AUTHOR AUTHOR'S ORGANIZ ATION 10/04/[address] [facility] DATE CREATED AUTHOR AUTHOR'S ORGANIZ ATION 03/07/[address] [facility] Goals (unrecognized section and content) Goals may be documented in a n alternate section FOR RECORDS PERTAINING TO PATIENTS WHO ARE OR HAVE BEEN ENROLLED IN A CHEMICAL DEPENDENCY/SUBSTANCEABUSE PROGRAM, SOME INFORMATION MAY BE OMITTED. This clinical summary was aggregated from multiple sources. Caution should be exercised in using it in the provision of clinical care. This summary normalizes information from multiple sources, and as a consequence, information in this document may materially change the coding, format and clinical context of patient data. In addition, data may be omitted in some cases. CLINICAL DECISIONS SHOULD BE BASED ON THE PRIMARY CLINICAL RECORDS. [email or web address] provides no warranty or guarantee of the accuracy or completeness of information in this document.
[2025-06-04] MEDS: Lidocaine 1% (20 ml mdv) 20 ML Vial 10 ML INFILT (13:14)
[2025-06-04 13:22] VITALS: BP 139/87; PULSE 88; RESP 14; TEMP 36.8; O2SAT 98
== END 2025-06-04 13:23 | disposition home or self-care (01) ==
PROVIDERS: Emergency Provider Emergency Medicine; Visit Provider Emergency Medicine
DX: S61.412A Laceration without foreign body of left hand, initial encounter (principal); W26.0XXA Contact with knife, initial encounter; Z87.891 Personal history of nicotine dependence
CPT/HCPCS: 12001; 99282